=== PATIENT | female | born 1960 | race Caucasian/White ===

== ENCOUNTER → 2016-12-09 | Outpatient (CLI) | payer OTHER ==
[~2016-12-09] MED LIST: ALDACTONE25 MG PO; ALEVE PM CAPLE1 EACH PO; ALLEGRA ALLERG180 MG PO; CPAP INH; FLONASE 50 MCG/16 GM NOSE; HYGROTON25 MG PO; LEVOTHROID (S137 MCG PO; MAGNESIUM PO; MOBIC7.5 MG PO; OXYBUTYNIN CHLO10 MG PO; VITAMIN D22000 UNIT PO; ZOCOR40 MG PO
== END ==
LOC: GNJRC 10:40
DX: Z01.818 Encounter for other preprocedural examination (principal); M17.11 Unilateral primary osteoarthritis, right knee; Z79.899 Other long term (current) drug therapy